=== PATIENT | male | born 1950 | race Caucasian/White ===

== ENCOUNTER 2022-02-17 01:27 | Inpatient (IN) | payer MEDICARE, BC ==
[~2022-02-17] VITALS: Ht 170.2 cm; Wt 81.8 kg
[~2022-02-17 01:27] MED LIST: CEPH-571 PO; HYDR-4383 PO
[2022-02-17] MEDS ORDERED: LORazepam 2 mg/ml vial IV ONE (01:40)
[2022-02-17] MEDS ORDERED: nitroGLYCERIN-Tridil 50MG/D5W 250 ML IV PRN (02:15)
[2022-02-17 02:16] LABS: BASOPHILS # (AUTO) 0.1 X10'3 (0-0.2); BASOPHILS % (AUTO) 0.6 % (0-1); EOSINOPHILS # (AUTO) 0.5 X10'3 (0-0.9); EOSINOPHILS % (AUTO) 2.1 % (0-6); HEMATOCRIT 38.8 % (42.0-52.0); HEMOGLOBIN 13.1 g/dl (14.0-17.9); LYMPHOCYTES # (AUTO) 2.2 X10'3 (1.1-4.8); LYMPHOCYTES % (AUTO) 9.3 % (21-51); MEAN CORPUSCULAR HEMOGLOBIN 29.2 PG (27.0-31.0); MEAN CORPUSCULAR HGB CONC 33.9 g/dL (33.0-36.5); MEAN PLATELET VOLUME 7.7 FL (7.4-10.4); MONOCYTES % (AUTO) 8.3 % (2-12); NEUTROPHILS # (AUTO) 19.1 X10'3 (1.8-7.7); NEUTROPHILS % (AUTO) 79.7 % (42-75); PLATELET COUNT 455 X10'3 (140-440); RED BLOOD COUNT 4.51 X10'6 (4.70-6.10); RED CELL DISTRIBUTION WIDTH 13.9 % (11.5-14.5); WHITE BLOOD COUNT 23.9 X10'3 (4.5-11.0)
[2022-02-17 02:22] LABS: ALANINE AMINOTRANSFERASE 26 U/L (12-78); ALBUMIN 2.5 G/DL (3.4-5.0); ALBUMIN/GLOBULIN RATIO 0.6 (1.1-1.5); ALKALINE PHOSPHATASE 139 IU/L (46-116); ANION GAP 6 (8-16); ASPARTATE AMINO TRANSFERASE 26 U/L (10-37); BILIRUBIN,TOTAL 0.2 MG/DL (0.1-1.0); BLOOD UREA NITROGEN 37 MG/DL (7-18); BUN/CREATININE RATIO 15.6 (5.4-32.0); CALCIUM 8.6 MG/DL (8.5-10.1); CHLORIDE 96 MMOL/L (99-107); CREATININE 2.37 MG/DL (0.60-1.10); GLUCOSE 312 MG/DL (70-104); POTASSIUM 4.3 MMOL/L (3.5-5.1); SODIUM 130 MMOL/L (135-145); TOTAL CARBON DIOXIDE 27.6 MMOL/L (24-32); TOTAL PROTEIN 6.6 G/DL (6.4-8.2); eGFR 27 ML/MIN
[2022-02-17 02:30] LABS: MAGNESIUM 1.7 MG/DL (1.5-2.4)
[2022-02-17] MEDS ORDERED: furosemide 10 MG/1 ML 10ml inj IV ONE (02:45)
[2022-02-17] MEDS ORDERED: CefTRIAXone/D5W-Rocephin 1gm 50 ML IV ONE (02:45)
[2022-02-17] MEDS ORDERED: magnesium 2GM in 50ml NS 50 ML IV PRN (04:40)
[2022-02-17] MEDS ORDERED: POTASSIUM BICARB 20meq eff tab 20 MEQ TABLET.EFF PO PRN ×2 (04:40)
[2022-02-17] MEDS ORDERED: magnesium 4gm in 100ml NS 100 ML IV PRN (04:40)
[2022-02-17] MEDS ORDERED: potassium CL 10mEq/100ml bag 100 ML IV PRN (04:40)
[2022-02-17] MEDS ORDERED: mag hydrox/Alum hydrox/simeth 30ml oral suspension PO PRN (04:40)
[2022-02-17] MEDS ORDERED: magnesium Cl slow-release 64mg tablet PO PRN (04:40)
[2022-02-17] MEDS ORDERED: PERFLUTREN PROTEIN-A MICROSPHR (Optison) 0.22 MG/ML 3ML VIAL IV ONE (04:40)
[2022-02-17] MEDS ORDERED: magnesium hydroxide 30ml (MOM) UD suspension PO PRN (04:40)
[2022-02-17] MEDS ORDERED: acetaminophen 325mg tablet PO PRN (04:40)
[2022-02-17] MEDS ORDERED: ondansetron/PF 4mg/2ml inj IV PRN (04:40)
[2022-02-17] MEDS ORDERED: DEXTROSE 15 GM of carb/4 tabs (each vial/BOTTLE has 4 tablets) PO PRN ×2 (04:45)
[2022-02-17] MEDS ORDERED: dextrose 50%-water 50ml dispensing syringe IV PRN ×2 (04:45)
[2022-02-17] MEDS ORDERED: MESSAGE TO PHARMACY PO ONE (04:45)
[2022-02-17] MEDS ORDERED: glucagon, human recombinant 1mg kit SUBCUT PRN (04:45)
[2022-02-17 05:08] LABS: HEMOGLOBIN A1C 12.2 % (4.5-6.2)
[2022-02-17] MEDS ORDERED: SITA100T15 PO (05:18)
[2022-02-17] MEDS ORDERED: NITR0.3T10 SL (05:18)
[2022-02-17] MEDS ORDERED: ATOR40TA72 PO (05:18)
[2022-02-17] MEDS ORDERED: LISI2.5T14 PO (05:18)
[2022-02-17] MEDS ORDERED: IRBE150T24 PO (05:18)
[2022-02-17] MEDS ORDERED: CLOP75TA34 PO (05:18)
[2022-02-17] MEDS ORDERED: LEVO200T8 PO (05:18)
[2022-02-17] MEDS ORDERED: FINA5TAB11 PO (05:18)
[2022-02-17] MEDS ORDERED: ASPI-1265 PO (05:18)
[2022-02-17] MEDS ORDERED: FLO0.4C PO (05:18)
[2022-02-17] MEDS ORDERED: HYDR-3964 PO (05:18)
[2022-02-17] MEDS ORDERED: METO25TA6 PO (05:18)
[2022-02-17] MEDS ORDERED: nitroGLYCERIN 0.4mg SUBLingual tab SL PRN (05:50)
[2022-02-17] MEDS ORDERED: HYDROcodone/acetaminophen 5mg/325mg tablet PO PRN (05:50)
[2022-02-17] MEDS: levoTHYROXINE 100mcg tablet PO SCH ×3 (07:00→08:52)
[2022-02-17] MEDS: K and/or MAG REPLACEMENT MC SCH ×2 (08:00→20:00)
[2022-02-17] MEDS: tamsulosin 0.4mg capsule PO SCH (08:51)
[2022-02-17] MEDS: metoprolol tartrate 25mg tablet PO SCH ×2 (08:53→20:14)
[2022-02-17] MEDS: atorvastatin 20mg tablet PO SCH (08:54)
[2022-02-17] MEDS: carVEDilol 12.5mg tablet PO SCH ×2 (08:54→20:14)
[2022-02-17] MEDS: docusate sod 100mg capsule PO SCH ×2 (08:55→20:14)
[2022-02-17] MEDS: aspirin 81mg tab.chew PO SCH (08:56)
[2022-02-17] MEDS: clopidogrel 75mg tablet PO SCH (08:56)
[2022-02-17] MEDS: heparin, porcine 5000 units/ml vial SQ SCH ×2 (08:58→20:14)
[2022-02-17 09:28] LABS: POTASSIUM 4.1 MMOL/L (3.5-5.1)
[2022-02-17] MEDS: finasteride 5mg tablet PO SCH (11:36)
[2022-02-17] MEDS: cefuroxime axetil 250mg tablet PO SCH ×2 (11:36→22:36)
[2022-02-17 15:00] VITALS: BP 156/86
[2022-02-17 18:00] VITALS: BP 162/74
[2022-02-17] MEDS: furosemide 40mg/4ml inj IV SCH (18:49)
[2022-02-17] MEDS: insulin Lispro (HumaLOG) vial - multi-dose SQ SCH (20:31)
[2022-02-17 21:00] VITALS: BP 167/87
[2022-02-17] MEDS ORDERED: insulin glargine (Lantus) pen - multi-dose SQ SCH (21:00)
[2022-02-17 22:00] VITALS: BP 153/74
[2022-02-18 02:00] VITALS: BP 160/80
[2022-02-18 06:35] LABS: BASOPHILS # (AUTO) 0.1 X10'3 (0-0.2); BASOPHILS % (AUTO) 0.9 % (0-1); EOSINOPHILS # (AUTO) 0.5 X10'3 (0-0.9); EOSINOPHILS % (AUTO) 4.1 % (0-6); HEMATOCRIT 33.5 % (42.0-52.0); HEMOGLOBIN 11.7 g/dl (14.0-17.9); LYMPHOCYTES # (AUTO) 2.5 X10'3 (1.1-4.8); MEAN CORPUSCULAR HEMOGLOBIN 29.8 PG (27.0-31.0); MEAN CORPUSCULAR VOLUME 85.2 FL (78-98); MEAN PLATELET VOLUME 7.6 FL (7.4-10.4); MONOCYTES # (AUTO) 1.2 X10'3 (0-0.9); MONOCYTES % (AUTO) 10.4 % (2-12); NEUTROPHILS # (AUTO) 7.1 X10'3 (1.8-7.7); NEUTROPHILS % (AUTO) 62.6 % (42-75); PLATELET COUNT 347 X10'3 (140-440); RED BLOOD COUNT 3.94 X10'6 (4.70-6.10); RED CELL DISTRIBUTION WIDTH 13.8 % (11.5-14.5); WHITE BLOOD COUNT 11.3 X10'3 (4.5-11.0)
[2022-02-18 06:58] LABS: ALANINE AMINOTRANSFERASE 23 U/L (12-78); ALBUMIN 2.2 G/DL (3.4-5.0); ALBUMIN/GLOBULIN RATIO 0.6 (1.1-1.5); ALKALINE PHOSPHATASE 105 IU/L (46-116); ANION GAP 10 (8-16); ASPARTATE AMINO TRANSFERASE 32 U/L (10-37); BILIRUBIN,TOTAL 0.3 MG/DL (0.1-1.0); BLOOD UREA NITROGEN 40 MG/DL (7-18); BUN/CREATININE RATIO 17.5 (5.4-32.0); CALCIUM 8.6 MG/DL (8.5-10.1); CHLORIDE 101 MMOL/L (99-107); CREATININE 2.28 MG/DL (0.60-1.10); GLUCOSE 101 MG/DL (70-104); POTASSIUM 3.5 MMOL/L (3.5-5.1); SODIUM 137 MMOL/L (135-145); TOTAL CARBON DIOXIDE 26.1 MMOL/L (24-32); TOTAL PROTEIN 5.6 G/DL (6.4-8.2); eGFR 28 ML/MIN
[2022-02-18] MEDS: heparin, porcine 5000 units/ml vial SQ SCH (08:00)
[2022-02-18] MEDS: furosemide 40mg/4ml inj IV SCH (08:00)
[2022-02-18] MEDS: K and/or MAG REPLACEMENT MC SCH (08:00)
[2022-02-18] MEDS: cefuroxime axetil 250mg tablet PO SCH (09:23)
[2022-02-18] MEDS: metoprolol tartrate 25mg tablet PO SCH (09:23)
[2022-02-18] MEDS: clopidogrel 75mg tablet PO SCH (09:23)
[2022-02-18] MEDS: carVEDilol 12.5mg tablet PO SCH (09:24)
[2022-02-18] MEDS: atorvastatin 20mg tablet PO SCH (09:25)
[2022-02-18] MEDS: aspirin 81mg tab.chew PO SCH (09:25)
[2022-02-18] MEDS: tamsulosin 0.4mg capsule PO SCH (09:25)
[2022-02-18] MEDS: levoTHYROXINE 100mcg tablet PO SCH (09:26)
[2022-02-18] MEDS: docusate sod 100mg capsule PO SCH (09:26)
[2022-02-18] MEDS: insulin Lispro (HumaLOG) vial - multi-dose SQ SCH ×2 (09:39→14:24)
[2022-02-18 11:00] VITALS: BP 153/69
[2022-02-18] MEDS: finasteride 5mg tablet PO SCH (13:17)
[2022-02-18 15:29] VITALS: BP 189/89
[2022-02-18] MEDS ORDERED: HYDROcodone/acetaminophen 10/325mg tab PO PRN (16:15)
== END 2022-02-18 18:15 | disposition left against medical advice (07) | DRG 291 ==
LOC: ER 01:27 → ED HOLD 04:42 → PCU 3S 15:04
PROVIDERS: ADMIT Internal Medicine; ATTEND Internal Medicine
DX: I13.0 Hypertensive heart and chronic kidney disease with heart failure and stage 1 through stage 4 chronic kidney disease, or unspecified chronic kidney disease (principal); I50.23 Acute on chronic systolic (congestive) heart failure; I16.1 Hypertensive emergency; N17.9 Acute kidney failure, unspecified; I42.9 Cardiomyopathy, unspecified; E03.9 Hypothyroidism, unspecified; N18.30 Chronic kidney disease, stage 3 unspecified; E78.5 Hyperlipidemia, unspecified; N40.0 Benign prostatic hyperplasia without lower urinary tract symptoms; E11.65 Type 2 diabetes mellitus with hyperglycemia; D72.829 Elevated white blood cell count, unspecified; D64.9 Anemia, unspecified; E11.22 Type 2 diabetes mellitus with diabetic chronic kidney disease; F20.9 Schizophrenia, unspecified; I25.10 Atherosclerotic heart disease of native coronary artery without angina pectoris; J44.9 Chronic obstructive pulmonary disease, unspecified; M54.50 Low back pain, unspecified; I25.2 Old myocardial infarction; Z88.0 Allergy status to penicillin
CPT/HCPCS: 36415; 71045; 72100; 80053; 82948; 83036; 83605; 83735; 83880; 84132; 84145; 84443; 84484; 85025; 85610; 87040; 87081; 93306; 99291; A4349; A4357; A4615; C1758; G0378; J0696; J1644; J1815; J1940; J2060

== ENCOUNTER 2023-06-22 16:58 | Emergency (ER) | payer MEDICARE, BC ==
[~2023-06-22] VITALS: Ht 175.3 cm; Wt 76.1 kg
[~2023-06-22 16:58] MED LIST changes: +ASPI-1265 PO; +ATOR40TA72 PO; -CEPH-571 PO; +CLOP75TA34 PO; +FINA5TAB11 PO; +FLO0.4C PO; +HYDR-3964 PO; -HYDR-4383 PO; +IRBE150T34 PO; +LEVO200T8 PO; +LISI2.5T14 PO; +METO25TA6 PO; +NITR0.3T10 SL; +SITA100T15 PO
[2023-06-22 16:59] VITALS: BP 185/94; PULSE 109; RESP 16; TEMP 98; O2SAT 98
== END 2023-06-22 18:21 | disposition home or self-care (01) ==
LOC: ER 16:59
DX: S50.862A Insect bite (nonvenomous) of left forearm, initial encounter (principal); S51.812A Laceration without foreign body of left forearm, initial encounter; Z88.0 Allergy status to penicillin; Z79.82 Long term (current) use of aspirin; Z79.899 Other long term (current) drug therapy; Z79.01 Long term (current) use of anticoagulants; Z99.2 Dependence on renal dialysis; W53.01XA Bitten by mouse, initial encounter; Y93.89 Activity, other specified; Y92.89 Other specified places as the place of occurrence of the external cause; Y99.8 Other external cause status
CPT/HCPCS: 99281

== ENCOUNTER 2023-07-10 09:21 | Emergency (ER) | payer MEDICARE, BC ==
[~2023-07-10] VITALS: Ht 175.3 cm; Wt 85.0 kg
[2023-07-10] MEDS: metoprolol tartrate 50mg tablet PO STA (13:07)
[2023-07-10] MEDS: DOXYCYCLINE 100MG CAPSULE PO STA (13:07)
[2023-07-10] MEDS ORDERED: heparin 1,000unit/ml 10ml vial 10 ML ONE (13:27)
[2023-07-10] MEDS ORDERED: LIDOcaine 1% 30ml preserv. free vial ONE (13:27)
[2023-07-10 13:29] LABS: BASOPHILS # (AUTO) 0.1 X10'3 (0-0.2); EOSINOPHILS # (AUTO) 2.7 X10'3 (0-0.9); EOSINOPHILS % (AUTO) 19.8 % (0-6); HEMATOCRIT 38.9 % (42.0-52.0); HEMOGLOBIN 12.8 g/dl (14.0-17.9); LYMPHOCYTES # (AUTO) 1.6 X10'3 (1.1-4.8); LYMPHOCYTES % (AUTO) 11.8 % (21-51); MEAN CORPUSCULAR HEMOGLOBIN 30.5 PG (27.0-31.0); MEAN CORPUSCULAR HGB CONC 32.9 g/dL (33.0-36.5); MEAN CORPUSCULAR VOLUME 92.7 FL (78-98); MONOCYTES % (AUTO) 7.8 % (2-12); NEUTROPHILS # (AUTO) 8.1 X10'3 (1.8-7.7); NEUTROPHILS % (AUTO) 59.6 % (42-75); PLATELET COUNT 236 X10'3 (140-440); RED BLOOD COUNT 4.19 X10'6 (4.70-6.10); WHITE BLOOD COUNT 13.5 X10'3 (4.5-11.0)
[2023-07-10] MEDS ORDERED: midazolam 1 mg/ML 2ml injection ONE (13:38)
[2023-07-10] MEDS ORDERED: fentaNYL/PF 50MCG/1 ML 2ML syringe ONE (13:38)
[2023-07-10 13:40] LABS: ALBUMIN 2.8 G/DL (3.4-5.0); ANION GAP 9 (8-16); BLOOD UREA NITROGEN 52 MG/DL (7-18); BUN/CREATININE RATIO 9.3 (10.0-20.0); CALCIUM 8.8 MG/DL (8.5-10.1); CHLORIDE 97 MMOL/L (99-107); GLUCOSE 119 MG/DL (70-104); POTASSIUM 5.8 MMOL/L (3.5-5.1); SODIUM 136 MMOL/L (135-145); TOTAL CARBON DIOXIDE 30.2 MMOL/L (24-32); eCRCL 12 ML/MIN; eGFR 10 ML/MIN
[2023-07-10 13:44] LABS: APTT 26 SECONDS (22-32); PROTHROMBIN TIME 10.8 SECONDS (9.0-12.0)
[2023-07-10 15:43] VITALS: BP 145/82; PULSE 85; RESP 18; O2SAT 99
== END 2023-07-10 15:44 | disposition home or self-care (01) ==
LOC: ER 09:21
DX: T82.42XA Displacement of vascular dialysis catheter, initial encounter (principal); I12.9 Hypertensive chronic kidney disease with stage 1 through stage 4 chronic kidney disease, or unspecified chronic kidney disease; E11.22 Type 2 diabetes mellitus with diabetic chronic kidney disease; N18.9 Chronic kidney disease, unspecified; E03.9 Hypothyroidism, unspecified; Z88.0 Allergy status to penicillin; Z79.82 Long term (current) use of aspirin; Z79.899 Other long term (current) drug therapy
CPT/HCPCS: 36415; 36558; 76937; 77001; 80048; 85025; 85610; 85730; 99152; 99153; 99285; C1750; J1644; J2250; J3010; J3490; J7030; A4620; A6258; A9270; C1769; C1894

== ENCOUNTER 2023-07-11 21:08 | Emergency (ER) | payer MEDICARE, BC ==
[~2023-07-11] VITALS: Ht 175.3 cm; Wt 77.0 kg
[2023-07-11 21:18] VITALS: TEMP 98.2
[2023-07-11 21:50] VITALS: BP 165/85; PULSE 98; RESP 18; O2SAT 98
== END 2023-07-11 21:54 | disposition home or self-care (01) ==
LOC: ER 21:08
DX: T82.9XXA Unspecified complication of cardiac and vascular prosthetic device, implant and graft, initial encounter (principal); E11.22 Type 2 diabetes mellitus with diabetic chronic kidney disease; N18.9 Chronic kidney disease, unspecified; E03.9 Hypothyroidism, unspecified; Z79.82 Long term (current) use of aspirin; Z79.899 Other long term (current) drug therapy
CPT/HCPCS: 99281; A6258

== ENCOUNTER 2023-07-14 00:50 | Emergency (ER) | payer MEDICARE, BC ==
[~2023-07-14] VITALS: Ht 175.3 cm; Wt 80.0 kg
[2023-07-14 01:08] VITALS: BP 195/92; PULSE 95; RESP 16; TEMP 98.2; O2SAT 99
== END 2023-07-14 02:12 | disposition home or self-care (01) ==
LOC: ER 00:51
DX: T82.838A Hemorrhage due to vascular prosthetic devices, implants and grafts, initial encounter (principal); E11.22 Type 2 diabetes mellitus with diabetic chronic kidney disease; N18.9 Chronic kidney disease, unspecified; E07.9 Disorder of thyroid, unspecified; F20.9 Schizophrenia, unspecified; I25.2 Old myocardial infarction; Z86.73 Personal history of transient ischemic attack (TIA), and cerebral infarction without residual deficits; Z79.82 Long term (current) use of aspirin; Y92.89 Other specified places as the place of occurrence of the external cause
CPT/HCPCS: 99281